=== PATIENT | male | born 1980 | race Caucasian/White ===

== ENCOUNTER 2017-07-28 09:08 | Emergency (ER) | payer SELFPAY ==
[~2017-07-28] VITALS: Ht 185.4 cm; Wt 75.9 kg
[2017-07-28 10:05] VITALS: BP 128/87
== END 2017-07-28 10:05 | disposition home or self-care (01) | DRG 605 ==
LOC: ED 09:08 → EDBD 09:24 → ED 10:05
DX: S80.01XA Contusion of right knee, initial encounter (principal); F17.210 Nicotine dependence, cigarettes, uncomplicated; X58.XXXA Exposure to other specified factors, initial encounter